=== PATIENT | male | born 1980 | race Hispanic/Latino ===

== ENCOUNTER 2022-06-23 03:06 | Emergency (ER) | payer MEDICAID, OTHER ==
[~2022-06-23] VITALS: Ht 175.3 cm; Wt 105.7 kg
[2022-06-23] MEDS ORDERED: TETRACAINE HCL 0.5% 4 ML OPHTH SOLN OP SCH (04:00)
[2022-06-23] MEDS ORDERED: HYDROCODONE/ACETAMINOPHEN 5/325 MG TAB PO ONE (04:00)
[2022-06-23 06:42] VITALS: BP 119/74
[2022-06-23] MEDS ORDERED: FLUORESCEIN SODIUM 1 STRIP STRIP ONE (07:12)
[2022-06-23] MEDS ORDERED: FLUORESCEIN SODIUM 1 STRIP STRIP OP SCH (07:30)
== END 2022-06-23 07:42 | disposition left against medical advice (07) ==
LOC: EDH 03:06
DX: H57.13 Ocular pain, bilateral (principal); H57.89 Other specified disorders of eye and adnexa; Z53.21 Procedure and treatment not carried out due to patient leaving prior to being seen by health care provider